=== PATIENT | male | born 1935 | race Caucasian/White ===

== ENCOUNTER 2020-10-17 10:44 | Outpatient (CLI) | payer MEDICARE, OTHER, SELFPAY ==
[2020-10-17 11:17] LABS: Basophils Absolute Auto 0.1 K/mm3 (0.0-0.1); Eosinophils Absolute Auto 0.1 K/mm3 (0-0.3); Eosinophils Percent Auto 1.5 % (0-4.4); Hematocrit 43.4 % (42.0-52.0); Hemoglobin 14.6 g/dL (14.0-18.0); Immature Granulocyte Absolute 0.03 K/mm3 (0.00-0.031); Immature Granulocyte Percent A 0.5 % (0-0.5); Lymphocytes Absolute Auto 1.65 K/mm3 (0.9-3.2); Lymphocytes Percent Auto 26.9 % (18.3-44.2); Mean Corpuscular HGB Conc 33.6 g/dl (32-36); Mean Corpuscular Hemoglobin 31.5 pg (26-34); Mean Corpuscular Volume 93.5 fl (80-100); Mean Platelet Volume 11.1 fl (7.4-10.4); Monocytes Absolute Auto 0.6 K/mm3 (0.1-0.6); Monocytes Percent Auto 9.8 % (2.6-8.5); Neutrophils Absolute Auto 3.7 K/mm3 (1.3-6.7); Neutrophils Percent Auto 60.3 % (45.5-73.1); Platelet Count Result 167 k/mm3 (150-375); Red Blood Count 4.64 M/mm3 (4.6-6.20); Red Cell Distribution Width 15.5 % (11.5-14.5); White Blood Count 6.1 K/mm3 (4.5-10.0)
[2020-10-17 11:32] LABS: Alanine Aminotransferase 16 U/L (4-50); Albumin Level 4.2 g/dL (3.5-5.1); Alkaline Phosphatase 60 U/L (38-126); Anion Gap 10 mmol/L (8-16); Aspartate Amino Transferase 23 U/L (17-59); Bilirubin,Total 0.5 mg/dL (0.2-1.3); Blood Urea Nitrogen 23 mg/dL (9-20); Calcium 9.3 mg/dL (8.4-10.2); Carbon Dioxide 24 mmol/L (22-30); Chloride 105 mmol/L (98-107); Estimated Glomerular Filt Rate > 60; Glucose 134 mg/dL (65-110); Potassium 4.5 mmol/L (3.4-5.0); Sodium 139 mmol/L (137-145)
== END 2020-10-17 10:45 | disposition home or self-care (01) ==
PROVIDERS: PCP Internal Medicine; Visit Provider Internal Medicine Cardiovascular Disease
DX: I35.0 Nonrheumatic aortic (valve) stenosis (principal)
CPT/HCPCS: 36415; 80053; 85025

== ENCOUNTER 2022-02-18 09:02 | Outpatient (CLI) | payer MEDICARE, OTHER, SELFPAY ==
--- NOTE | ~2022-02-18 | CT_ITS ---
EXAMINATION: CT diagnostic chest w con DATE: 02/18/2022 09:40 INDICATION: 8 mm right lower lobe nodule. Cough. Patient never smoked. TECHNIQUE: Computed tomography (CT) of the chest was performed with 75 CC Omnipaque 350 intravenous c ontrast. Automated exposure control and iterative reconstruction technique were employed. Exam dose: 316.77 mGy-cm total exam DLP. COMPARISON: 05/26/2008 CT thorax FINDINGS: Multiple new right lung nodules since 05/26/2008: 8 mm superior segment posterior 8 mm right lower lobe nodule (series 4 image 53). 8.6 mm anteromedial right lower lobe nodule (image 61). 1 cm medial right lower lobe pulmonary nodule (image 63). 7 mm lateral right lower lobe nodule (image 80). 6.5 mm lateral segment middle lobe nodule (image 80). Stable left upper lobe calcified pulmonary granuloma. Stable 5.2 mm anterolateral left upper lobe nodule since 05/26/2008. Large left pleural effusion with prominent compressive atelectasis of the left lower lobe. There is m ild dependent left upper lobe atelectasis. No central obstructing endobronchial lesion is detected. There is minimal dependent right lower lobe atelectasis. Calcified left lower lobe pulmonary granuloma. There are calcified left hilar nodes. Thoracic aortic and great vessel and coronary artery calcifications. No thoracic aortic aneurysm or d issection is evident. Aortic valve replacement. Normal heart size. No pericardial effusion. No hilar or mediastinal mass lesion or lymphadenopathy. Normal morphology of the adrenal glands. Status post cholecystectomy. 2.1 cm posterior right hepatic dome cyst. Colon diverticulosis. Degenerative changes of the cervical, thoracic and lumbar spine. No suspicious osteolytic or osteobla stic lesions. IMPRESSION: Multiple new right lung nodules; differential diagnosis includes pulmonary granuloma is, pulmonary metastases Large left pleural effusion with compressive atelectasis of left lower lobe Mild dependent right upper lobe atelectasis, minimal middle lobe and right lower lobe atelectasis Aortic valve replacement Reviewed, dictated and finalized at Location A. Reviewed, dictated and finalized at location B. ET PERSON IMPRESSION: Multiple new right lung nodules; differential diagnosis includes p ulmonary granuloma is, pulmonary metastases Large left pleural effusion with compressive atelectasis of left lower lobe Mild dependent right upper lobe atelectasis, minimal middle lobe and right lowe r lobe atelectasis Aortic valve replacement
[2022-02-18 09:26] LABS: Estimated Glomerular Filt Rate > 60
== END 2022-02-18 09:03 | disposition home or self-care (01) ==
PROVIDERS: PCP Family Medicine; Visit Provider Family Medicine
DX: R91.8 Other nonspecific abnormal finding of lung field (principal); J98.11 Atelectasis; Z95.2 Presence of prosthetic heart valve
CPT/HCPCS: 71260; Q9967

== ENCOUNTER 2022-02-28 12:06 | Outpatient (CLI) | payer MEDICARE, OTHER, SELFPAY ==
--- NOTE | ~2022-02-28 | PE_ITS ---
EXAMINATION: PET skull to mid thigh DATE: 02/28/2022 13:59 INDICATION: Multiple pulmonary nodules TECHNIQUE: Blood glucose level was 125 mg/dL. 10.114 mCi of 18-fluorodeoxyglucose (18-FDG) was admini stered i.v. Low dose computed tomography (CT) images were acquired from the base of the brain to the proximal thighs for attenuation correction and anatomic localization. Positron emission tomography (P ET) images were acquired in the same distribution beginning 61 minutes after injection. Images includ ing fused PET/CT images were reconstructed in axial, coronal, and sagittal planes. Automated exposure control technique was employed. The dose-length product was 767.39mGy-cm. COMPARISON: Chest CT dated 02/18/2022 FINDINGS: Head/neck: There is symmetric increased activity in the oral cavity, laryngeal muscles and ocular muscles withou t CT correlate, likely physiologic. Coarse calcification and 21.5 cm nodule without abnormal FDG upta ke in the left thyroid lobe. No pathologically enlarged cervical lymphadenopathy or suspicious foci o f increased FDG uptake in the visualized head or neck. Chest: Persistent moderate to large posterior layering left pleural effusion with dependent compressive atel ectasis in the left lower lobe and to lesser degree left upper lobe and lingula. 10 mm and 8 mm nodul es in the posterior basilar segment of the right lower lobe, 8 mm pulmonary nodule in the superior se gment of the right lower lobe, 7 mm nodule at the lateral segment of the right middle lobe and 6 mm n odule at the anterobasilar segment of the right lower lobe, all without evident FDG activity. Small c alcified pulmonary nodules in the left lower lobe and right middle lobe and calcified left hilar lymp h nodes consistent with old granulomatous disease. Heart size is normal. Atherosclerotic coronary art danika calcification. Aortic valve repair. Very small pericardial effusion. Thoracic aorta is normal in caliber. Minimal increased uptake with maximal SUV of 4.4 associated with a right hilar lymph node wh ich is better distinguish from the adjacent right lower lobar pulmonary artery on the prior postcontr ast study at which time the lymph node measured 12 x 11 mm. No other pathologically enlarged or FDG a vid thoracic lymphadenopathy. Abdomen/pelvis/proximal thighs: Physiologic renal accumulation and excretion of FDG activity in the kidneys, bladder and along portio ns of ureters. Prostatomegaly. Photopenic defect associated with a 2.0 cm low-attenuation cyst at the posterior dome of the liver. Normal degree and heterogenous pattern of increased uptake throughout t he liver without radiologic correlate or dominant FDG avid lesion. Cholecystectomy clips at the gallb ladder fossa. A few small splenic calcifications consistent with old granulomatous disease. The pancr eas and bilateral adrenal glands are normal. There is extensive scattered colonic diverticulosis with out adjacent inflammatory stranding to suggest diverticulitis. Mild uptake scattered throughout the b owels without radiologic correlate, also likely physiologic. There is a small focus of increased upta ke along the skin surface at the right groin with maximal SUV of 3.9 with minimal underlying groundgl ass opacity in the superficial subdermal fat which would argue against fat contamination as an etiolo gy. No other abnormal foci of increased FDG uptake or pathologically enlarged lymphadenopathy in the abdomen, pelvis or proximal thighs. Musculoskeletal: Mild likely degenerative increased uptake at the right sternoclavicular joint and bilaterally at the inferior aspect of the bilateral sacroiliac joints with corresponding osteoarthritic changes. Mild in creased uptake overlying the bilateral greater trochanters consistent with trochanteric bursitis. No other suspicious lytic, blastic or FDG avid bone lesions. IMPRESSION: 1. No increased uptake associated with
[2022-02-28 12:36] LABS: Glucose Point of Care 125 mg/dl (65-105)
== END 2022-02-28 12:07 | disposition home or self-care (01) ==
PROVIDERS: PCP Family Medicine; Visit Provider Family Medicine
DX: R91.1 Solitary pulmonary nodule (principal); R91.8 Other nonspecific abnormal finding of lung field; J90 Pleural effusion, not elsewhere classified; K57.30 Diverticulosis of large intestine without perforation or abscess without bleeding; N40.0 Benign prostatic hyperplasia without lower urinary tract symptoms
CPT/HCPCS: 78815; A9552

== ENCOUNTER 2022-03-14 13:30 | Outpatient (RCR) | payer MEDICARE, OTHER, SELFPAY ==
[2021-12-11 15:38] VITALS: PULSE 89
== END 2022-03-14 15:45 | disposition home or self-care (01) ==
LOC: ANHCPREHAB 13:30
PROVIDERS: PCP Family Medicine; Visit Provider Internal Medicine Cardiovascular Disease
DX: Z95.2 Presence of prosthetic heart valve (principal)
CPT/HCPCS: 93798

== ENCOUNTER 2022-09-23 09:45 | Outpatient (CLI) | payer MEDICARE, OTHER, SELFPAY ==
[2022-09-23 12:47] LABS: Alanine Aminotransferase 17 U/L (6-50); Albumin Level 3.8 g/dL (3.5-5.1); Alkaline Phosphatase 66 U/L (38-126); Anion Gap 4 mmol/L (8-16); Aspartate Amino Transferase 32 U/L (17-59); Bilirubin,Total 0.6 mg/dL (0.2-1.3); Blood Urea Nitrogen 22 mg/dL (9-20); Calcium 8.7 mg/dL (8.4-10.2); Carbon Dioxide 26 mmol/L (22-30); Chloride 107 mmol/L (98-107); Cholesterol 136 mg/dL (0-200); Estimated Glomerular Filt Rate > 60; Glucose 115 mg/dL (65-110); HDL Direct 48 mg/dL; Potassium 3.7 mmol/L (3.4-5.0); Sodium 137 mmol/L (137-145); Triglycerides 84 mg/dL (<150)
[2022-09-23 13:01] LABS: LDL Cholesterol Direct 55 mg/dL
[2022-09-23 13:18] LABS: Prostate Specific Antigen 0.9 ng/mL (< OR = 4.0)
[2022-09-23 13:45] LABS: Hemoglobin A1C 5.9 % (<5.7)
== END 2022-09-23 09:46 | disposition home or self-care (01) ==
LOC: ANHGOSHLAB 09:47
PROVIDERS: Internal Medicine; PCP Family Medicine; Visit Provider Family Medicine
DX: E03.8 Other specified hypothyroidism (principal); Z13.228 Encounter for screening for other metabolic disorders; E11.9 Type 2 diabetes mellitus without complications; Z13.29 Encounter for screening for other suspected endocrine disorder; Z13.220 Encounter for screening for lipoid disorders; Z12.5 Encounter for screening for malignant neoplasm of prostate
CPT/HCPCS: 36415; 80053; 80061; 83036; 84153; 84443; G0103

== ENCOUNTER 2023-02-17 07:21 | Outpatient (CLI) | payer MEDICARE, OTHER, SELFPAY ==
--- NOTE | ~2023-02-17 | CT_ITS ---
Clinical Indication: Solitary pulmonary nodule CT Scan of the Chest with Contrast: Technique: Contiguous sections were acquired throughout the chest after intravenous administration of 75 cc of Omnipaque 350. Dose reduction technique was used on this scan by utilizing automated exposu re control and iterative reconstruction technique. The dose-length product (DLP) was 450.93 mGy-cm. COMPARISON: 02/18/2022 Findings: There is no evidence of any significant mediastinal, hilar or axillary lymphadenopathy. There is no f illing defect in the pulmonary arterial tree to suggest pulmonary embolus. There is no evidence of ao rtic dissection or aneurysm. Coronary artery calcifications are present. Aortic valve replacement pre sent. No pericardial effusion or right pleural effusion. Large left pleural effusion is present, with exten sive, near complete left lower lobe atelectasis. There are multiple pulmonary nodules, increased in s ize and number from prior exam, predominantly in the right lower lobe, largest measuring up to approx imately 1.8 cm in diameter, suspicious for metastatic disease. Images through the upper abdomen reveal no abnormalities. Impression: Multiple pulmonary nodules, predominantly in the right lower lobe, are increased in size and number f rom prior exam, highly suspicious for metastatic disease. Large left pleural effusion with near complete left lower lobe atelectasis. Reviewed, dictated and finalized at location M. NEERING COORDINATOR Impression: Multiple pulmonary nodules, predominantly in the right lower lobe, are increase d in size and number from prior exam, highly suspicious for metastatic disease. Large left pleural effusion with near complete left lower lobe atelectasis.
[2023-02-17 07:46] LABS: Estimated Glomerular Filt Rate > 60
== END 2023-02-17 07:22 | disposition home or self-care (01) ==
PROVIDERS: PCP Family Medicine; Visit Provider Family Medicine
DX: R91.1 Solitary pulmonary nodule (principal); J90 Pleural effusion, not elsewhere classified; R91.8 Other nonspecific abnormal finding of lung field
CPT/HCPCS: 71260; Q9967

== ENCOUNTER 2023-02-25 12:03 | Outpatient (CLI) | payer MEDICARE, OTHER, SELFPAY ==
--- NOTE | ~2023-02-25 | PE_ITS ---
EXAMINATION: PET skull to mid thigh DATE: 02/25/2023 14:05 INDICATION: Solitary pulmonary nodule. TECHNIQUE: Blood glucose level was 108 mg/dL. 10.632 mCi of 18-fluorodeoxyglucose (18-FDG) was admini stered i.v. Low dose computed tomography (CT) images were acquired from the base of the brain to the proximal thighs for attenuation correction and anatomic localization. Automated exposure control was employed. Dose-length product (DLP) was 1158 mGy-cm. Positron emission tomography (PET) images were a cquired in the same distribution. COMPARISON: Chest CT 02/17/2023, PET/CT 02/28/2022, abdomen CT 02/24/2009 FINDINGS: Head/neck: There are no pathologically enlarged lymph nodes. Chest: There is a large left pleural effusion. There are areas of increased activity at the pleura. T here is a calcified pleural plaque on the left. There are greater than 10 scattered pulmonary nodules measuring up to 18 mm without increased activity. Calcified left lung nodules and calcified left hil ar lymph nodes are consistent with old granulomatous disease. The heart size is normal. There are cor onary artery calcifications. There are changes of aortic valve replacement. No pericardial effusion. Abdomen/pelvis/proximal thighs: The liver is normal. There are changes of cholecystectomy. Calcificat ions in the spleen are consistent with old granulomatous disease. The pancreas, adrenal glands, and k idneys are normal. There is a supraumbilical ventral hernia containing fat. The prostate is mildly en larged. There is diverticulosis of the colon without evidence of diverticulitis. There are no dilated loops of bowel. There is calcified atherosclerosis of the aorta and many of the other arteries. Ther e are no pathologically enlarged lymph nodes. There is no free intraperitoneal fluid. There is fat ri ght inguinal canal that may be a hernia. There is no osseous malignancy. IMPRESSION: 1. Pulmonary nodules measuring up to 18 mm without increased activity, worsened from 02/28/2022. The differential diagnosis includes infection, inflammation, and metastatic disease. 2. Chronic large left pleural effusion with areas of increased activity at the pleura, which may be i nfection, inflammation, or metastatic disease. Consider ultrasound-guided thoracentesis. Reviewed, dictated and finalized at location A. S CONSULTING DIRECTOR IMPRESSION: 1. Pulmonary nodules measuring up to 18 mm without increased activity, worsened from 02/28/2022. The differential diagnosis includes infection, inflammation, and metastatic disease. 2. Chronic large left pleural effusion with areas of increased activity at the pleura, which may be infection, inflammation, or metastatic disease. Consider u ltrasound-guided thoracentesis.
[2023-02-25 12:26] LABS: Glucose Point of Care 108 mg/dl (65-105)
== END 2023-02-25 12:04 | disposition home or self-care (01) ==
PROVIDERS: PCP Family Medicine; Visit Provider Family Medicine
DX: R91.1 Solitary pulmonary nodule (principal); R91.8 Other nonspecific abnormal finding of lung field; J90 Pleural effusion, not elsewhere classified
CPT/HCPCS: 78815; A9552

== ENCOUNTER 2023-04-01 06:29 | Outpatient (CLI) | payer MEDICARE, OTHER, SELFPAY ==
--- NOTE | 2023-03-26 14:46 | PC.NURSE ---
Pre Radiology instructions Report to the outpatient marlena gill on date _04/01/23____ at time _1100 for procedure Time: 1300____ YOU MAY BE MONITORED AT HOSPITAL FOR UP TO 4 HOURS AFTER YOUR PROCEDURE. A visitor will be allowed to accompany the patient into the hospital. You and your visitor will be asked to self-screen and do not enter if you have any COVID symptoms. A mask is OPTIONAL within the hospital. Patients are to have no food or drink 6 hours prior to procedure time (7AM) Driving will be restricted after the procedure, you must have a person to drive you home. Labs will be drawn in preop area and once reviewed, you will be taken to radiology area for procedure. When the procedure is completed, you will be taken to outpatient where you will be monitored for several hours. You may have one visitor in this area. Other than holding anti-coagulants, patient may take other medication(s) as scheduled. Prior to your appointment date patients are instructed to hold anti-coagulants after discussing with ordering provider to stop. If unable to discontinue anti-coagulants please notify radiologist. ? No aspirin or warfarin (Coumadin) for 7 days prior to the procedure. ? No clopidogrel (Plavix), ticagrelor (Brilinta), prasugrel (Effient) or dabigatran (Pradaxa) for 5 days prior to the procedure. ? No rivaroxaban (Xarelto), apixaban (Eliquis), dipyridamole (Aggrenox or Persantine) or cilostazol (Pletal) for 2 days prior to the procedure. Medications to discontinue per physician: __PT STATES HAS NOT TAKEN PLAVIX FOR 3 WK HAS BEEN TAKING 81 MG ASPIRIN . INSTRUCTED TO HOLD ASPIRIN 7 DAYS PRE PROCEDURE .STATES LAST DOSE 03/25/23 Please leave all valuables, including medications, at home the day of procedure. The hospital will not accept responsibility for valuables. Wear comfortable, loose fitting clothing.? Follow any additional instructions given to you from ordering provider. Telephone instructions given to __PATIENT and asked if any additional questions and then verbalized understanding. Patient advised to call scheduling provider office or registration scheduling [phone] if any additional questions.
[2023-03-26 14:58] VITALS: BMI 29.5
[2023-04-01] VITALS (8 sets, daily range): BP systolic 121–140; BP diastolic 60–84; PULSE 67–79; RESP 16; TEMP 36.9; O2SAT 98–99
--- NOTE | ~2023-04-01 | US_ITS ---
Corrected Report Ordered on wrong visit # 04/11/2023 ABBY EXAMINATION: US thoracentesis DATE: 04/01/2023 13:40 INDICATION: Left pleural effusion TECHNIQUE: The procedure and its risks and benefits were discussed with the patient. Potential risks discussed included bleeding, infection, and pneumothorax. The patient understood the risks and agreed to proceed. The skin was prepped and draped in sterile fashion. 1% lidocaine was used for local anesthesia. Under ultrasound guidance, a 5 Fr catheter with trochar was advanced into the left pleural effusion. Fluid was aspirated. The catheter was removed, and a dressing was applied. There were no immediate complications. FINDINGS: Real-time ultrasound images demonstrate a large left pleural effusion and the catheter within the fluid. IMPRESSION: 1. Successful ultrasound-guided thoracentesis yielding 1100 mL of cloudy aquilino- colored fluid. Reviewed, dictated and finalized at location A. NIO AL
--- NOTE | ~2023-04-01 | XR_ITS ---
Corrected Report Order on wrong visit # 04/11/2023 [facility] EXAMINATION: [id number] DATE: 04/01/2023 13:23 INDICATION: Left pleural effusion status post left thoracentesis TECHNIQUE: frontal view of the chest was obtained. COMPARISON: PET/CT dated 02/25/2023 FINDINGS: Persistent moderate-sized left pleural effusion. And associated atelectasis with groundglass opacities in the left midlung zone and more dense opacities in the lower lung zones. There are several nodular opacities in the right mid and lower lung zone. Calcified left upper lobe nodule and calcified left hilar lymph nodes consistent with old granulomatous disease. No pneumothorax or right-sided pleural effusion. Heart size is normal. Aortic valve repair. IMPRESSION: 1. Residual moderate-sized left pleural effusion with no pneumothorax post left thoracentesis. 2. Consolidation the left lower lung zone most likely atelectasis although underlying pneumonia or malignancy is not excludable. 3. A few nodules in the right mid and lower lung which could be infectious, inflammatory or metastatic in etiology. Reviewed, dictated and finalized at location A. Y PRODUCTS MAKER SERVANDO
[2023-04-01 11:37] LABS: Mean Platelet Volume 10.2 fl (7.4-10.4); Platelet Count Result 135 k/mm3 (150-375)
[2023-04-01 11:48] LABS: Prothrombin Time 13.6 Seconds (11.1-14.7)
[2023-04-01 13:52] LABS: Glucose Point of Care 98 mg/dl (65-105)
[2023-04-01 14:14] LABS: pH Pleural Fluid 7.278 (7.210-7.500)
[2023-04-01 14:24] LABS: Color Pleural Fluid Yellow (Colorless); Nucleated Cell Pleural Fluid 1599 /uL (0-1000); Pleural fluid source Pleural fluid
[2023-04-01 15:45] LABS: Appearance Pleural Fluid Hazy (Clear)
[2023-04-01 15:46] LABS: Other Cells Pleural Fluid 100 %
[2023-04-04 05:44] LABS: Glucose Pleural Fluid <10 mg/dL; LDH Pleural Fluid 804 U/L; Total Protein Pleural Fluid 4.5 g/dL
[2023-05-28 08:19] LABS: RBC Pleural Fluid 8000 /uL (0-0)
== END 2023-04-01 15:45 | disposition home or self-care (01) ==
PROVIDERS: PCP Family Medicine; Referring Provider Internal Medicine Critical Care Medicine; Visit Provider Radiology Diagnostic Radiology
DX: Z01.818 Encounter for other preprocedural examination (principal); J90 Pleural effusion, not elsewhere classified; R91.8 Other nonspecific abnormal finding of lung field
CPT/HCPCS: 32555; 36415; 82945; 82948; 83615; 83986; 84157; 85049; 85610; 87015; 87070; 87075; 87102; 87116; 87205; 87206; 88108; 88271; 88275; 88291; 88305; 88341; 88342; 89051

== ENCOUNTER 2023-04-08 10:35 | Outpatient (CLI) | payer MEDICARE, OTHER, SELFPAY ==
[2023-04-07 15:22] VITALS: BMI 29.5
--- NOTE | 2023-04-07 15:22 | PC.NURSE ---
Pre Radiology instructions Report to the outpatient marlena gill on date _04/08/23____ at time __10:30AM for procedure Time: _11:00AM___ YOU MAY BE MONITORED AT HOSPITAL FOR UP TO 4 HOURS AFTER YOUR PROCEDURE. A visitor will be allowed to accompany the patient into the hospital. You and your visitor will be asked to self-screen and do not enter if you have any COVID symptoms. A mask is OPTIONAL within the hospital. Patients are to have no food or drink 6 hours prior to procedure time Driving will be restricted after the procedure, you must have a person to drive you home. Labs will be drawn in preop area and once reviewed, you will be taken to radiology area for procedure. When the procedure is completed, you will be taken to outpatient where you will be monitored for several hours. You may have one visitor in this area. Other than holding anti-coagulants, patient may take other medication(s) as scheduled. Prior to your appointment date patients are instructed to hold anti-coagulants after discussing with ordering provider to stop. If unable to discontinue anti-coagulants please notify radiologist. ? No aspirin or warfarin (Coumadin) for 7 days prior to the procedure. ? No clopidogrel (Plavix), ticagrelor (Brilinta), prasugrel (Effient) or dabigatran (Pradaxa) for 5 days prior to the procedure. ? No rivaroxaban (Xarelto), apixaban (Eliquis), dipyridamole (Aggrenox or Persantine) or cilostazol (Pletal) for 2 days prior to the procedure. Medications to discontinue per physician: __HOLD ASPIRIN 7 DAYS PRE-PROCEDURE- PT HAS BEEN HOLDING SINCE 03/25/23 FOR ANOTHER PROCEDURE. HOLD PLAVIX 5 DAYS PRE-PROCEDURE Date to take last dose: ___04/02/23 Please leave all valuables, including medications, at home the day of procedure. The hospital will not accept responsibility for valuables. Wear comfortable, loose fitting clothing.? Follow any additional instructions given to you from ordering provider. Telephone instructions given to __PATIENT and asked if any additional questions and then verbalized understanding. Patient advised to call scheduling provider office or registration scheduling [phone] if any additional questions.
[2023-04-08] VITALS (10 sets, daily range): BP systolic 110–147; BP diastolic 58–81; PULSE 74–88; RESP 14–18; O2SAT 96–100
--- NOTE | ~2023-04-08 | XR_ITS ---
EXAMINATION: XR chest 1V DATE: 04/08/2023 11:50 INDICATION: Status post right lung biopsy TECHNIQUE: frontal view of the chest was obtained. COMPARISON: Chest radiograph dated 04/01/2023 FINDINGS: No significant interval change in a moderate-sized left pleural effusion. Mass at the right costophre jesus angle. There are a few additional scattered bilateral smaller pulmonary nodules. No pneumothorax or right-sided pleural effusion. Heart size within normal limits. Aortic valve repair. Cholecystectom y clips in right upper quadrant. IMPRESSION: 1. No pneumothorax or right-sided pleural effusion post percutaneous right lung biopsy. 2. Bilateral pulmonary nodules which raises concern for malignancy. Correlate with results from a per cutaneous lung biopsy. 3. Moderate-sized left pleural effusion with associated atelectasis in the left lower lung zone altho ugh superimposed pneumonia is not excludable. Reviewed, dictated and finalized at location A. ER HARDWARE WORKER IMPRESSION: 1. No pneumothorax or right-sided pleural effusion post percutaneous right lung biopsy. 2. Bilateral pulmonary nodules which raises concern for malignancy. Correlate w ith results from a percutaneous lung biopsy. 3. Moderate-sized left pleural effusion with associated atelectasis in the left lower lung zone although superimposed pneumonia is not excludable.
--- NOTE | ~2023-04-08 | CT_ITS ---
EXAMINATION: CT biopsy lung w/imaging DATE: 04/08/2023 12:01 INDICATION: Multiple bilateral pulmonary nodules. TECHNIQUE: The procedure including the risks and benefits was discussed with the patient. Risks discu ssed included infection, approximately 1/20 risk of symptomatic hemorrhage beyond mild hemoptysis, ap proximately 1/3 risk of pneumothorax, and approximately 1/10 risk of pneumothorax severe enough to wa rrant chest tube placement. The patient understood the risks and agreed to proceed. The patient was p laced prone. The skin overlying the posterior right hemithorax was prepped and draped in sterile fas hion. Anesthetic was administered with 1% lidocaine subcutaneously. A 19 gauge outer needle was adv anced under CT guidance to the lesion of interest. A 20 gauge core biopsy needle was then used to obt ain 5 core biopsy specimens. The needle was removed and the entry site was cleaned and dressed. Ther e were no immediate complications. The dose-length product was 169.35 mGy-cm. FINDINGS: CT images demonstrate the outer needle tip adjacent to just within a 1.5 cm right lower lob e nodule. Moderate-sized left pleural effusion with atelectasis in the lingula. IMPRESSION: 1. Successful CT-guided biopsy of a 1.5 cm right lower lobe nodule which is one of multiple bilateral pulmonary nodules. 2. Moderate-sized left pleural effusion. Reviewed, dictated and finalized at location A. SMITH HELPER
--- NOTE | ~2023-04-08 | XR_ITS ---
EXAMINATION: XR chest 1V portable DATE: 04/08/2023 14:48 INDICATION: Status post percutaneous right lung biopsy TECHNIQUE: frontal view of the chest was obtained. COMPARISON: Chest radiographs dated 04/08/2023 FINDINGS: Persistent opacities in the left mid and lower lung zone consistent with a moderate-sized left pleura l effusion and associated atelectasis versus pneumonia. Nodular opacity right costophrenic angle. Add itional calcified nodules in the left upper lung zone consistent with old granulomatous disease. No p neumothorax or right-sided pleural effusion. Heart size is normal. Aortic valve repair. IMPRESSION: 1. No pneumothorax post percutaneous biopsy of a right lower lobe nodule. 2. Unchanged moderate-sized left pleural effusion with associated atelectasis and/or pneumonia in the left lower lung zone. Reviewed, dictated and finalized at location A. L IMPRESSION: 1. No pneumothorax post percutaneous biopsy of a right lower lobe nodule. 2. Unchanged moderate-sized left pleural effusion with associated atelectasis a nd/or pneumonia in the left lower lung zone.
--- NOTE | ~2023-04-08 | XR_ITS ---
XR chest 1V portable 04/08/2023 12:55 Indication: Post image guided biopsy. Procedure: AP portable chest Comparison: 04/08/2023 Findings: Borderline heart size. Diffuse bilateral interstitial infiltrates which may represent edema . Moderate left pleural effusion. No pneumothorax identified. Bilateral nodular opacities, suspicious for malignancy. Impression: 1: No pneumothorax identified post biopsy. 2: Developing interstitial infiltrates bilaterally which may represent edema. 2: Moderate left pleural effusion. 4: Bilateral nodular opacities, suspicious for malignancy. Reviewed, dictated and finalized at location L. EURIZER HELPER Impression: 1: No pneumothorax identified post biopsy. 2: Developing interstitial infiltrates bilaterally which may represent edema. 2: Moderate left pleural effusion. 4: Bilateral nodular opacities, suspicious for malignancy.
== END 2023-04-08 15:20 | disposition home or self-care (01) ==
PROVIDERS: Radiology Diagnostic Radiology; PCP Family Medicine; Visit Provider Internal Medicine Critical Care Medicine
PROC: BB24ZZZ Computerized Tomography (CT Scan) of Bilateral Lungs (ICD-10-PCS; CPT 32408; principal; 2023-04-08 11:00)
DX: R91.8 Other nonspecific abnormal finding of lung field (principal); J90 Pleural effusion, not elsewhere classified
CPT/HCPCS: 32408; 32555; 71045; 88305

== ENCOUNTER 2023-10-14 07:59 | Emergency (ER) | payer MEDICARE, OTHER, SELFPAY ==
--- NOTE | ~2023-10-14 | XR_ITS ---
EXAMINATION: XR hip RT 2V w AP pelvis DATE: 10/14/2023 09:28 INDICATION: Fall. TECHNIQUE: An anteroposterior view of the pelvis and 2 views of right hip were obtained. COMPARISON: None. FINDINGS: There is lumbar levocurvature and severe spondylosis. No fracture. There is mild osteoarthr itis of the hips. IMPRESSION: 1. No fracture. 2. Mild osteoarthritis of the hips. Reviewed, dictated and finalized at location A.
--- NOTE | ~2023-10-14 | CT_ITS ---
EXAMINATION: CTA chest DATE: 10/14/2023 09:07 INDICATION: Shortness of breath. Fall. TECHNIQUE: Computed tomographic angiography (CTA) of the chest was performed with 100 mL Omnipaque-35 0 intravenous contrast. Automated exposure control and iterative reconstruction technique were employ ed. The dose-length product was 362.74 mGy-cm. Maximum intensity projection 3D-reconstructions of the aorta and other arteries were constructed by the technologist on a separate workstation. COMPARISON: Chest CT 02/17/2023 FINDINGS: There are small pleural effusions. There is nodular pleural thickening on the left. There a re scattered nodules in the lungs measuring up to 2.5 cm in right middle lobe. There are airspace opa cities in the lower lobes. There are nodules in the thyroid measuring up to 12 mm on the left, likely not clinically significant. Cardiomegaly is noted. There are changes of aortic valve replacement. Th ere is a trace pericardial effusion. There is a small sliding hiatal hernia. Aortic atherosclerosis i s noted. No aneurysm or dissection. There is severe stenosis of right renal artery. There is cortical thinning of the kidneys. There is a right internal jugular port with tip in proximal right atrium. T here are masses in left posterolateral chest wall measuring up to 7.0 x 2.1 cm. There are fractures o f right 2nd-11th ribs. Many of the ribs are broken in 2 places. There are old healed left rib fractur es. There is a compression fracture of T6 with 2/5 loss of height, new from 02/17/2023. There are frac ture deformities of the sternum, new from 02/17/2023. There is moderate thoracic spondylosis. IMPRESSION: 1. Worsened pulmonary nodules and worsened nodular left-sided pleural thickening, consistent with met astatic disease. 2. Small pleural effusions. 3. Airspace opacities in the lower lobes, consistent with atelectasis versus pneumonia versus treatme nt change. 4. Aortic atherosclerosis. No aneurysm or dissection. 5. Acute versus subacute fractures of right second-11th ribs. Many of the ribs are broken in 2 places . 6. T6 compression fracture, new from 02/17/2023, likely subacute or chronic. 7. Fracture deformities of the sternum, new from 02/17/2023, likely subacute or chronic. 8. Left posterolateral chest wall masses, consistent with hematoma and/or metastatic disease. Reviewed, dictated and finalized at location A. IMPRESSION: 1. Worsened pulmonary nodules and worsened nodular left-sided pleural thickenin g, consistent with metastatic disease. 2. Small pleural effusions. 3. Airspace opacities in the lower lobes, consistent with atelectasis versus pn eumonia versus treatment change. 4. Aortic atherosclerosis. No aneurysm or dissection. 5. Acute versus subacute fractures of right second-11th ribs. Many of the ribs are broken in 2 places. 6. T6 compression fracture, new from 02/17/2023, likely subacute or chronic. 7. Fracture deformities of the sternum, new from 02/17/2023, likely subacute or chronic. 8. Left posterolateral chest wall masses, consistent with hematoma and/or metas tatic disease.
--- NOTE | ~2023-10-14 | CT_ITS ---
CT brain wo con Ordering provider: Galen Walker MD History: 88 years Male with . fall . Comparison: None. Technique: CT of the head without contrast. Radiation reduction technique utilized. The dose-length product was 681 mGy-cm. FINDINGS: BRAIN PARENCHYMA AND CSF SPACES: Mild leukoaraiosis and diffuse cortical atrophy. Mild atheromatous d isease. Old lacunar infarct in the right basal ganglia. No midline shift, mass effect or hemorrhage. The brain parenchyma and CSF spaces are otherwise normal. VISUALIZED PARANASAL SINUSES: Well aerated. MASTOIDS: Well aerated. BONES: The bones appear intact. SOFT TISSUES: Visualized nasopharynx is normal. Scalp hematoma is seen in the right parietal area [place] perficial soft tissues are normal. IMPRESSION: No acute intracranial findings. Reviewed, dictated and finalized at location A.
--- NOTE | ~2023-10-14 | CT_ITS ---
CT cervical spine wo con Ordering provider: Galen Walker MD History: . fall . Comparison: None. Technique: CT of the cervical spine was performed without contrast. Sagittal and coronal reformatted images were also obtained and reviewed. Automated exposure control and iterative reconstruction armond hnique were employed. The dose-length product was 209.54 mGy-cm. FINDINGS: Right central line is seen. VERTEBRAE: No subluxation or acute fracture. The occipital condyles are intact. Minimal retrolisthes is at the level of C3-C4 with minimal anterolisthesis at the level of C4-C5. Levoscoliosis. DISC SPACES: Degenerative disc disease at the level of C3-C4, C4-C5 and C6-C7. Multilevel facet joint disease. Multilevel uncovertebral joint osteoarthritic changes. Bilateral narrowing of the foramina at the level of C3-C4, C4-C5, C5-C6 and C6-C7 PARASPINOUS SOFT TISSUES: Bilateral carotid atherosclerotic changes. IMPRESSION: No acute osseous abnormality cervical spine. Reviewed, dictated and finalized at location A.
--- NOTE | ~2023-10-14 | XR_ITS ---
EXAMINATION: XR shoulder RT min 2V DATE: 10/14/2023 09:28 INDICATION: Fall. TECHNIQUE: 4 views of right shoulder were obtained. COMPARISON: Chest CT 10/14/2023 FINDINGS: There are fractures of right second-ninth ribs. There is mild osteoarthritis of glenohumera l joint and acromioclavicular joint. There is a right internal jugular port with tip in right atrium. There are changes of aortic valve replacement. IMPRESSION: 1. Fractures of right second-ninth ribs. 2. Mild polyarticular osteoarthritis. Reviewed, dictated and finalized at location A.
[2023-10-14 08:01] VITALS: BP 122/64; PULSE 71; RESP 19; TEMP 36.7; O2SAT 95
--- NOTE | 2023-10-14 08:08 | ECG_ITS ---
Test Date: 2023-10-14 08:11:09 Measurements Intervals [place] Rate: 69 P: -26 IA: 236 QRS: -31 QRSD: 105 T: 23 QT: 429 QTc: 461 Interpretive Statements SINUS RHYTHM WITH FIRST DEGREE AV BLOCK LEFT AXIS DEVIATION INCOMPLETE RIGHT BUNDLE BRANCH BLOCK NONSPECIFIC ST & T-WAVE ABNORMALITY- ANT/INF LEADS BASELINE ARTIFACT- I, II, AVR, V3 BORDERLINE ECG No previous ECG available for comparison Electronically Signed On 10-14-2023 08:38:56 CDT by Rafael Gomez D.O.
[2023-10-14 08:09] VITALS: O2SAT 96
[2023-10-14 08:25] LABS: Glucose Point of Care 167 mg/dl (65-105)
[2023-10-14 08:32] LABS: Basophils Absolute Auto 0.1 K/mm3 (0.0-0.1); Basophils Percent Auto 0.9 % (0.2-1.2); Eosinophils Absolute Auto 0.6 K/mm3 (0-0.3); Hematocrit 40.9 % (42.0-52.0); Hemoglobin 12.9 g/dL (14.0-18.0); Immature Granulocyte Absolute 0.16 K/mm3 (0.00-0.031); Immature Granulocyte Percent A 1.6 % (0-0.5); Lymphocytes Absolute Auto 1.02 K/mm3 (0.9-3.2); Lymphocytes Percent Auto 10.1 % (18.3-44.2); Mean Corpuscular HGB Conc 31.5 g/dl (32-36); Mean Corpuscular Hemoglobin 30.5 pg (26-34); Mean Corpuscular Volume 96.7 fl (80-100); Mean Platelet Volume 10.2 fl (7.4-10.4); Monocytes Absolute Auto 0.7 K/mm3 (0.1-0.6); Monocytes Percent Auto 6.6 % (2.6-8.5); Neutrophils Absolute Auto 7.5 K/mm3 (1.3-6.7); Neutrophils Percent Auto 74.8 % (45.5-73.1); Platelet Count Result 213 k/mm3 (150-375); Red Blood Count 4.23 M/mm3 (4.6-6.20); Red Cell Distribution Width 16.6 % (11.5-14.5); White Blood Count 10.1 K/mm3 (4.5-10.0)
[2023-10-14 08:44] LABS: Estimated CRCL calculation 40 ml/min; Estimated Glomerular Filt Rate > 60
[2023-10-14 08:47] LABS: Partial Thromboplastin Time 25.5 Seconds (22.3-36.8); Prothrombin Time 13.3 Seconds (11.1-14.7)
--- NOTE | 2023-10-14 08:59 | PC.NURSE ---
0800: Pt unable to maintain Sa02 above 89% on room air. Dr. Walker at bedside and aware.
--- NOTE | 2023-10-14 09:02 | PC.NURSE ---
0815: skin tear to right hand cleanses with wound cleanser, Neosporin applied, covered with telfa & secured with coban. Pt tolerated well
[2023-10-14 09:05] LABS: Influenza A QL RT-PCR Negative (Negative); Influenza B QL RT-PCR Negative (Negative); RSV RNA, RT-PCR Negative (Negative); SARS-CoV-2 RNA PCR Negative (Negative)
[2023-10-14] MEDS: TETANUS,DIPHTHERIA,AC PERTUSSIS ADULT (0.5 ML) BOOSTRIX IM (09:09)
[2023-10-14 09:28] LABS: Alanine Aminotransferase 24 U/L (6-50); Alkaline Phosphatase 78 U/L (38-126); Anion Gap 5 mmol/L (4-12); Aspartate Amino Transferase 33 U/L (17-59); Bilirubin,Total 0.3 mg/dL (0.2-1.3); Blood Urea Nitrogen 19 mg/dL (9-20); Calcium 8.3 mg/dL (8.4-10.2); Carbon Dioxide 28 mmol/L (22-30); Chloride 100 mmol/L (98-107); Estimated CRCL calculation 44 ml/min; Estimated Glomerular Filt Rate > 60; Glucose 161 mg/dL (65-110); Magnesium 1.8 mg/dL (1.6-2.3); Potassium 3.7 mmol/L (3.4-5.0); Sodium 133 mmol/L (137-145)
[2023-10-14 09:40] LABS: NT Pro B Type Natriuretic Pept 318 pg/mL (19.9-100); Troponin I < 0.012 ng/mL (0.000-0.034)
[2023-10-14 09:48] VITALS: BP 109/58; PULSE 76; RESP 22; O2SAT 97
--- NOTE | 2023-10-14 09:49 | PC.NURSE ---
Dr. Walker at bedside informing pt & family of pts results and need to be transferred to [facility]. Family agreeable. Pt unable to take deep breaths due to pain, breath sounds diminished throughout
--- NOTE | 2023-10-14 09:56 | ED.GENADULT ---
HPI - General Adult General Chief complaint: Fall Stated complaint: fall Time Seen by Provider: 10/14/23 08:09 History of Present Illness HPI narrative: This is an 88-year-old male sent to the ED after a fall. Patient was attempting to go up the stairs. He made it up to stairs before lost balance fell backwards striking the back of his head. No loss of consciousness. He is on blood thinners. He is currently complaining of pain to the right side of his chest, his right shoulder and his right hip. Related Data Home Medications Medication Instructions Recorded Confirmed clopidogrel 75 mg tablet 75 mg PO DAILY 08/20/21 08/18/23 aspirin 81 mg tablet,delayed 81 mg PO DAILY 03/26/23 08/18/23 release (Adult Low Dose Aspirin) rosuvastatin 40 mg tablet 40 mg PO HS 04/07/23 08/18/23 Allergies Allergy/AdvReac Type Severity Reaction Status Date / Time Sulfa (Sulfonamide Allergy Unknown Hives Verified 10/14/23 09:04 Antibiotics) [facility] Past Medical History Medical History Degenerative arthritis of knee, bilateral Diabetes Surgical History Surgical History H/O hernia repair Heart valve replaced (~11/01/21) History of appendectomy History of coronary artery stent placement Family History Family History Mother Diabetes mellitus Family history of diabetes mellitus in first degree relative Father Family history of heart disease in male family member before age 55 Family history of coronary artery disease Sibling Family history of coronary artery disease Diabetes mellitus Cerebrovascular accident Social History Social History Smoking status: Never smoker Second hand tobacco smoke exposure: No Alcohol intake: current Substance use: never Lack of Transportation: No Lack of Food: Never True Current Housing: I Have Housing Concerned About Future Housing: No Difficulty Paying Gas/Electric Bills: No Difficulty Paying for Meds: No Currently Unemployed: No Education: High School Diploma/GED Difficulty w/ Childcare or Family Care: No Living arrangements: with family Occupation/Education: retired Gender identity (if verbalized by the patient): Male Exam Narrative: APPEARANCE: No apparent distress. Head: Hematoma to the right of septal scalp without laceration EYES: EOMI, NOSE: Atraumatic NECK: Trachea midline RESPIRATORY: Shallow respirations, 90% on room air, scattered rhonchi CARDIOVASCULAR: RRR, no peripheral edema ABDOMINAL: Non-distended soft nontender MUSCULOSKELETAl: Tenderness to palpation over the right ribcage, pain with range of motion of the right shoulder without obvious deformity. Tenderness palpation of the right hip NEURO: Alert. Moving 4/4 extremities SKIN:: Multiple minor skin tears over the right wrist PSYCHIATRIC: Normal affect Course Vital Signs Vital signs: Vital Signs Temperature 98.0 F 10/14/23 08:01 Pulse Rate 71 10/14/23 08:01 Respiratory Rate 19 10/14/23 08:01 Blood Pressure 122/64 10/14/23 08:01 Pulse Oximetry 95 10/14/23 08:01 Oxygen Delivery Nasal Cannula 10/14/23 08:01 Oxygen Flow Rate 2 10/14/23 08:01 Temperature 98.0 F 10/14/23 08:01 Pulse Rate 76 10/14/23 09:48 Respiratory Rate 22 H 10/14/23 09:48 Blood Pressure 109/58 L 10/14/23 09:48 Pulse Oximetry 97 10/14/23 09:48 Oxygen Delivery Nasal Cannula 10/14/23 08:09 Oxygen Flow Rate 2 10/14/23 08:09 Medical Decision Making [facility] Narrative Medical decision making narrative: -Course: 88-year-old male presenting with a fall. Trauma workup showed R rib fractures for ribs 2 through 11. Patient 90% on room air upon arrival. Placed on 2 L with pinch 96% blood pressure is initially 120/80 then down trended to
[2023-10-14] MEDS: SODIUM CHLORIDE 0.9% IV 1,000 ML 999 ML IV CONT (10:35)
[2023-10-14 10:37] VITALS: BP 98/58; PULSE 71; RESP 20; TEMP 36.8; O2SAT 96
[2023-10-14] MEDS: ACETAMINOPHEN 500 MG TABLET 1000 MG PO (10:53)
[2023-10-14] MEDS: LIDOCAINE 5% PATCH 1 PATCH TRANSDERM (10:54)
--- NOTE | 2023-10-14 11:00 | PC.NURSE ---
Ice pack to hematoma on right side of head. Dr. Walker at bedside with update on POC & pt acceptance to [facility]
[2023-10-14 11:10] VITALS: BP 105/59; PULSE 71; RESP 16; TEMP 36.8; O2SAT 99
[2023-10-14 11:14] LABS: Appearance Urine Clear (Clear); Bacteria Urine None Seen /hpf; Bilirubin Urine Negative (Negative); Blood Urine 3+ (Negative); Color Urine Yellow (Yellow); Glucose Urine UA Negative (Negative); Ketones Urine Negative (Negative); Leukocyte Esterase Ur Negative LEU/UL (Negative); Nitrate Urine Negative (Negative); Protein Urine Trace mg/dL (Negative); RBC Urine >100 /hpf (0-2); Specific Grav Ur > 1.045 (1.001-1.035); Squamous Epithelial Cell Urine None Seen /hpf (Few); WBC Urine 0-5 /hpf (0-3); pH Urine 5.5 (5.0-9.0)
[2023-10-14 11:20] LABS: Add Urine Microscopic? YES
--- NOTE | 2023-10-14 11:31 | PC.NURSE ---
Amelia RONDON called spoke with Tyrese RN, pt update given
[2023-10-14 11:48] LABS: Troponin I < 0.012 ng/mL (0.000-0.034)
== END 2023-10-14 11:31 | disposition short-term general hospital (02) ==
PROVIDERS: Emergency Provider Emergency Medicine; PCP Family Medicine
DX: S22.41XA Multiple fractures of ribs, right side, initial encounter for closed fracture (principal); S00.03XA Contusion of scalp, initial encounter; S61.511A Laceration without foreign body of right wrist, initial encounter; Z23 Encounter for immunization; Z11.52 Encounter for screening for COVID-19; I25.10 Atherosclerotic heart disease of native coronary artery without angina pectoris; E11.9 Type 2 diabetes mellitus without complications; C45.9 Mesothelioma, unspecified; M17.0 Bilateral primary osteoarthritis of knee; Z95.2 Presence of prosthetic heart valve; Z95.5 Presence of coronary angioplasty implant and graft; Z79.02 Long term (current) use of antithrombotics/antiplatelets; Z79.82 Long term (current) use of aspirin; M19.011 Primary osteoarthritis, right shoulder; M16.0 Bilateral primary osteoarthritis of hip; W10.9XXA Fall (on) (from) unspecified stairs and steps, initial encounter; R91.8 Other nonspecific abnormal finding of lung field; I70.0 Atherosclerosis of aorta; I44.0 Atrioventricular block, first degree; I45.10 Unspecified right bundle-branch block; R94.31 Abnormal electrocardiogram [ECG] [EKG]
CPT/HCPCS: 36415; 70450; 71275; 72125; 73030; 73502; 80053; 81001; 82948; 83735; 83880; 84484; 85025; 85610; 85730; 87637; 90471; 90715; 93005; 96360; 99285; A9270; J7030; Q9967